=== PATIENT | male | born 1965 | race Caucasian/White ===

== ENCOUNTER 2022-05-14 15:14 | Inpatient (IN) | payer OTHER ==
[~2022-05-14 15:14] MED LIST: Iopamidol-370 76% 500 ML 1 ML ONE
[2022-05-14] MEDS ORDERED: Fentanyl 100 MCG/2 ML VIAL ONE (15:19)
[2022-05-14 15:31] LABS: #Eosinphils 0.1 thou/uL (0.0-0.7); #Lymphocytes 1.4 thou/uL (1.20-3.40); #Monocytes 0.5 thou/uL (0.11-0.59); #Neutrophils 9.3 thou/uL (1.40-6.50); %Basophils 0.1 % (0.0-1.0); %Eosinophils 0.5 % (0.0-10.0); %Monocytes 4.5 % (0.0-10.0); %Neutrophils 82.9 % (42.0-75.0); Hemoglobin 13.5 g/dL (14.0-18.0); Mean Corpuscular HGB CONC 34.9 g/dL (32.0-36.0); Mean Corpuscular Hemoglobin 32.1 pg (27.0-31.0); Mean Corpuscular Volume 91.8 fL (78.0-98.0); Platelet Count 209 thou/uL (130-400); RBC Distribution Width 11.2 % (11.5-14.5); Red Blood Cell (RBC) Count 4.22 mill/uL (4.70-6.10); White Blood Cell (WBC) Count 11.2 thou/uL (4.8-10.8)
[2022-05-14 15:53] LABS: ALT (SGPT) 11 U/L (8-55); AST (SGOT) 16 U/L (5-34); Alkaline Phosphatase 103 U/L (40-110); Anion Gap 15 mmol/L (10-20); BUN (Urea Nitrogen) 16 mg/dL (8.4-25.7); CK (CPK) 150 U/L (30-200); Calc. Creatinine Clearance 0 mL/min (70-130); Calcium 8.5 mg/dL (7.8-10.44); Carbon Dioxide 20 mmol/L (22-29); Chloride 106 mmol/L (98-107); Estimated GFR 81; Globulin 2.4 g/dL (2.4-3.5); Glucose 265 mg/dL (70-105); Lipase 13 U/L (8-78); Potassium 4.5 mmol/L (3.5-5.1); Protein, Total 6.4 g/dL (6.0-8.3); Sodium 136 mmol/L (136-145)
[2022-05-14] MEDS ORDERED: Morphine 4 MG/ML VIAL ONE ×2 (16:10→19:02)
[2022-05-14] MEDS ORDERED: Morphine 2 MG/ML VIAL ONE (16:10)
[2022-05-14] MEDS ORDERED: CEFAZOLIN 2 GM in Sodium Chloride 0.9% 100 ML IVPB SCH (16:15)
[2022-05-14] MEDS ORDERED: Propofol 1,000 MG/100 ML VIAL IV ONE (16:49)
[2022-05-14] MEDS ORDERED: Ketamine 50 MG/ML (10ML VIAL) ONE (17:15)
[2022-05-14] MEDS ORDERED: hydrALAZINE 20 MG/ML VIAL ONE (17:28)
[2022-05-14] MEDS ORDERED: Lorazepam 2 MG/ML VIAL ONE (17:29)
[2022-05-14 18:44] LABS: SARS-CoV-2 NAA Rapid Test Not Detected (NotDetected)
[2022-05-14] MEDS ORDERED: hydrALAZINE 20 MG/ML VIAL SLOW IVP PRN (18:48)
[2022-05-14] MEDS ORDERED: Ondansetron PF 4 MG/2 ML Vial IVP PRN (18:48)
[2022-05-14] MEDS ORDERED: Morphine 2 MG/ML VIAL SLOW IVP PRN (18:48)
[2022-05-14] MEDS ORDERED: HYDROmorphone 0.5 MG/0.5 ML SYRINGE ONE (19:12)
[2022-05-14] MEDS ORDERED: traMADol HCl 50 MG TAB PO SCH (19:15)
[2022-05-14] MEDS ORDERED: HYDROmorphone 0.5 MG/0.5 ML SYRINGE SLOW IVP SCH (19:45)
[2022-05-14 21:19] VITALS: BMI 24.9
[2022-05-14] MEDS: Famotidine/PF 20 mg/2ml Vial SLOW IVP SCH (21:27)
[2022-05-14] MEDS: Sodium Chloride 0.9% 1,000 ML IV SCH (21:27)
[2022-05-14] MEDS ORDERED: TETANUS, DIPHTHERIA TOX,ADULT (TDVAX) 0.5 ML VIAL IM ONE (22:00)
[2022-05-14] MEDS ORDERED: Ketorolac Tromethamine 30 MG/ML VIAL IVP SCH (22:00)
[2022-05-15] MEDS: Acetaminophen 500 MG TAB PO SCH ×4 (00:16→23:13)
[2022-05-15] MEDS: Morphine 4 MG/ML VIAL SLOW IVP PRN ×2 (00:17→05:15)
[2022-05-15] MEDS: traMADol HCl 50 MG TAB PO SCH ×5 (00:18→23:15)
[2022-05-15] MEDS: Sodium Chloride 0.9% 1,000 ML IV SCH ×3 (05:00→21:28)
[2022-05-15] MEDS: Ketorolac Tromethamine 30 MG/ML VIAL IVP SCH ×4 (05:03→23:14)
[2022-05-15 05:29] LABS: #Eosinphils 0.1 thou/uL (0.0-0.7); #Lymphocytes 1.9 thou/uL (1.20-3.40); #Monocytes 0.8 thou/uL (0.11-0.59); #Neutrophils 6.3 thou/uL (1.40-6.50); %Basophils 0.2 % (0.0-1.0); %Eosinophils 1.3 % (0.0-10.0); %Lymphocytes 20.7 % (21.0-51.0); %Monocytes 9.2 % (0.0-10.0); %Neutrophils 68.7 % (42.0-75.0); Hemoglobin 13.4 g/dL (14.0-18.0); Mean Corpuscular HGB CONC 33.7 g/dL (32.0-36.0); Mean Corpuscular Hemoglobin 31.3 pg (27.0-31.0); Mean Corpuscular Volume 93.1 fL (78.0-98.0); Mean Platelet Volume 7.1 fL (7.4-10.4); Platelet Count 209 thou/uL (130-400); RBC Distribution Width 11.4 % (11.5-14.5); Red Blood Cell (RBC) Count 4.28 mill/uL (4.70-6.10); White Blood Cell (WBC) Count 9.2 thou/uL (4.8-10.8)
[2022-05-15 06:13] LABS: Anion Gap 13 mmol/L (10-20); BUN (Urea Nitrogen) 11 mg/dL (8.4-25.7); Calc. Creatinine Clearance 119 mL/min (70-130); Calcium 8.2 mg/dL (7.8-10.44); Carbon Dioxide 23 mmol/L (22-29); Chloride 104 mmol/L (98-107); Estimated GFR 102; Glucose 186 mg/dL (70-105); Potassium 3.9 mmol/L (3.5-5.1); Sodium 136 mmol/L (136-145)
[2022-05-15] MEDS ORDERED: Morphine 4 MG/ML VIAL ONE (09:14)
[2022-05-15] MEDS ORDERED: Sodium Chloride 0.9% 100 ML ONE (09:30)
[2022-05-15] MEDS ORDERED: CEFAZOLIN 2 GM VIAL ONE (09:30)
[2022-05-15] MEDS ORDERED: HYDROmorphone 2 MG/ML VIAL SLOW IVP PRN (09:31)
[2022-05-15] MEDS ORDERED: Promethazine HCl 25 MG/ML VIAL IM PRN ×2 (09:31→12:23)
[2022-05-15] MEDS ORDERED: Promethazine HCl 25 MG/ML VIAL IVPB PRN ×2 (09:31→12:23)
[2022-05-15] MEDS ORDERED: Ondansetron HCl/PF 4 MG/2 ML Vial IVP PRN ×2 (09:31→12:23)
[2022-05-15] MEDS ORDERED: fentaNYL Citrate/PF 100 MCG/2 ML SYRINGE ONE (10:54)
[2022-05-15] MEDS ORDERED: Ondansetron PF 4 MG/2 ML Vial ONE (11:00)
[2022-05-15] MEDS ORDERED: PROPOFOL 200 MG/20 ML VIAL ONE (11:00)
[2022-05-15] MEDS ORDERED: Fentanyl 100 MCG/2 ML VIAL ONE ×2 (12:50→13:11)
[2022-05-15] MEDS: Famotidine/PF 20 mg/2ml Vial SLOW IVP SCH ×2 (18:52→21:28)
[2022-05-15] MEDS: CEFAZOLIN 2 GM in Sodium Chloride 0.9% 100 ML IVPB SCH (18:58)
[2022-05-16] MEDS: Acetaminophen 500 MG TAB PO SCH ×3 (02:30→11:46)
[2022-05-16] MEDS: CEFAZOLIN 2 GM in Sodium Chloride 0.9% 100 ML IVPB SCH (02:35)
[2022-05-16] MEDS: traMADol HCl 50 MG TAB PO SCH ×2 (05:31→11:46)
[2022-05-16] MEDS: Ketorolac Tromethamine 30 MG/ML VIAL IVP SCH ×2 (05:31→11:46)
[2022-05-16] MEDS: Morphine 4 MG/ML VIAL SLOW IVP PRN (08:40)
[2022-05-16] MEDS: Famotidine/PF 20 mg/2ml Vial SLOW IVP SCH (08:40)
[2022-05-16] MEDS ORDERED: Famotidine 20 MG TAB PO SCH (09:00)
[2022-05-16] MEDS ORDERED: Enoxaparin Sodium 40 MG/0.4 ML SYRINGE SC SCH (09:00)
[2022-05-16 09:31] LABS: #Eosinphils 0.1 thou/uL (0.0-0.7); #Lymphocytes 1.1 thou/uL (1.20-3.40); #Monocytes 0.7 thou/uL (0.11-0.59); #Neutrophils 6.1 thou/uL (1.40-6.50); %Basophils 0.3 % (0.0-1.0); %Eosinophils 0.8 % (0.0-10.0); %Lymphocytes 14.3 % (21.0-51.0); %Neutrophils 75.6 % (42.0-75.0); Hemoglobin 12.6 g/dL (14.0-18.0); Mean Corpuscular HGB CONC 33.8 g/dL (32.0-36.0); Mean Corpuscular Hemoglobin 32.2 pg (27.0-31.0); Mean Corpuscular Volume 95.2 fL (78.0-98.0); Mean Platelet Volume 7.7 fL (7.4-10.4); Platelet Count 165 thou/uL (130-400); RBC Distribution Width 11.4 % (11.5-14.5); Red Blood Cell (RBC) Count 3.92 mill/uL (4.70-6.10)
[2022-05-16 11:37] VITALS: BP 157/84; TEMP 98.2
[2022-05-16] MEDS ORDERED: PARoxetine 20 MG TAB PO SCH (21:00)
== END 2022-05-16 16:25 | disposition home or self-care (01) | DRG 511 ==
LOC: ERS 15:14 → SJJU 18:05
PROVIDERS: ADMIT Surgery; ATTEND Surgery
PROC: 02HV33Z Insertion of Infusion Device into Superior Vena Cava, Percutaneous Approach (ICD-10-PCS; 2022-05-14)
PROC: 0PSJXZZ Reposition Left Radius, External Approach (ICD-10-PCS; 2022-05-14)
PROC: 0PSHXZZ Reposition Right Radius, External Approach (ICD-10-PCS; 2022-05-14)
PROC: 0PSH04Z Reposition Right Radius with Internal Fixation Device, Open Approach (ICD-10-PCS; principal; 2022-05-15)
PROC: 0PSJ04Z Reposition Left Radius with Internal Fixation Device, Open Approach (ICD-10-PCS; 2022-05-15)
DX: S52.532A Colles' fracture of left radius, initial encounter for closed fracture (principal); S52.531A Colles' fracture of right radius, initial encounter for closed fracture; S52.611A Displaced fracture of right ulna styloid process, initial encounter for closed fracture; S52.612A Displaced fracture of left ulna styloid process, initial encounter for closed fracture; W11.XXXA Fall on and from ladder, initial encounter; Y93.H3 Activity, building and construction; Y92.008 Other place in unspecified non-institutional (private) residence as the place of occurrence of the external cause; F43.10 Post-traumatic stress disorder, unspecified; Z20.822 Contact with and (suspected) exposure to COVID-19
CPT/HCPCS: 25605; 36556; 70450; 71045; 71260; 72125; 74177; 76000; 80048; 80053; 82550; 83690; 84484; 85025; 93005; 96374; 96375; 96376; 99152; C1713; G0390; J0360; J0690; J1170; J1650; J1885; J2060; J2270; J2405; J2704; J3010; J3490; J7050; Q9967; S0028; U0002